=== PATIENT | female | born 1985 | race Caucasian/White ===

== ENCOUNTER 2024-11-01 13:40 | Emergency (ER) | payer OTHER, SELFPAY ==
--- OUTSIDE RECORDS SUMMARY | 2024-11-01 13:42 | XMS_ITS | Patient Health Record ---
Author Organization [facility] Address [address] [place], [place] [id number] Care Team Providers Care Pecan Gatherer Name Role Phone SHAWANDABANNER Primary Care Provider Eze Schwartz Unavailable [phone] Allergies No Known Allergies Reason For Referral No Information Medications Medication SIG (Take, Route, Frequency, Duration) Notes Start Date End Date Status Microgestin FE 1.5/30 1.5-30 MG-MCG 1 tablet Orally Once a day; Duration: 90 days 03/15/2020 Active metroNIDAZOLE 0.75 % 1 applicatorful at bedtime Vaginal Once a day; Duration: 5 day(s) 08/09/2021 Active PROzac Active Metrogel-Vaginal 0.75% qd 5d 0.75% 5 g per vagina daily; Duration: 5 days 03/15/2020 Active Problems Problem Type SNOMED Code ICD Code Onset Dates Problem Status W/U Status Risk Notes Problem Menstrual disorder (115569407) Irregular menses (N92.6) Active confirmed Problem Obesity due to excess calories (759822181) Other obesity due to excess calories (E66.09) Active confirmed Problem Hypothyroid (57898850) Hypothyroid (E03.9) Active confirmed Problem Fibroid uterus (D25.9) Active confirmed Plan Of Treatment No Information Insurance Providers Payer Name Payer Address Payer Phone Subscriber Number Group Number Insured Name Patient Relationship to Insured Coverage Start Date Coverage End Date [facility] CHO[facility] PLUS [address] [place] [phone] [id number] Laureen Laguna Self - patient is the insured 2 Medications Administered Medication Instructions Date of Administration Dosage Notes MIKE-b12 04/03/2020 1 mg Medical (General) History Surgical History Surgery Date(Month/Year)
--- OUTSIDE RECORDS SUMMARY | 2024-11-01 13:42 | XMS_ITS | Clinical Summary ---
Author Organization [facility] Address [address] [place] [address] Care Team Providers Care Calliope Player Name Role Phone Breanne Dai MD Unavailable [phone] Deisy Zabala MD Primary Care Provider [phone] Allergies No known active allergies Medications valACYclovir (VALTREX) 1 gram tabletIndications :Chronic Suppression Take 1 tablet (1,000 mg total) by mouth daily. 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 before breakfast 90 tablet 9 Active levonorgestrel-et hinyl estrad (ALTAVERA, 28,) 0.15-0.03 mg per tabletIndications :Surveillance of previously prescribed contraceptive pill Take 1 tablet by mouth daily 84 tablet 4 9 Active FLUoxetine (PROzac) 20 mg capsuleIndication s:Anxiety with depression Take 1 capsule (20 mg total) by mouth daily 90 capsule 4 9 Active Active Problems Problem Noted Date Diagnosed Date HSV-2 (herpes simplex virus 2) infection 017 Acquired hypothyroidism 11/02/2015 Persistent mood disorder 11/02/2015 Resolved Problems Problem Noted Date Diagnosed Date Resolved Date Obesity due to excess calories 12/01/2016 12/08/2016 Surgical History Surgery Date Site/Laterality Comments CERVICAL BIOPSY W/ LOOP ELECTRODE EXCISION 05/04/2011 - 05/03/2012 BELEN II-III of cervix Medical History Medical History Date Comments Hypothyroidism Abnormal Pap smear of cervix 2011 BELEN II-III of cervix IBS (irritable bowel syndrome) anxiety 2015 Seasonal allergies Genital herpes simplex type 2 2017 Basal cell carcinoma 2015 nose Family History Medical History Relation Name Comments Other Father biological fath er unknown Colon cancer Maternal Grandfather Dementia Maternal Grandfather Bladder Cancer Maternal Grandmother Dementia Maternal Grandmother Heart failure Maternal Grandmother Hypertension Maternal Grandmother Kidney failure Maternal Grandmother COD a t age 80 Stroke Maternal Grandmother Cancer Mother's Brother COD at age 59; rare blood cancer Breast cancer Neg Hx Ovarian cancer Neg Hx Thyroid cancer Neg Hx Relation Name Status Comments Father Maternal Grandfather Maternal Grandmother Mother's Brother Social History Tobacco Use Types Packs/Day Years Used Date Smoking Tobacco: Never Smokeless Tobacco: Never Tobacco Cessation:Counseling Given: Yes Alcohol Use Standard Drinks/Week Comments No 0 (1 standard drink = 0.6 oz pur e alcohol) Comments No Sex and Gender Information Value Date Recorded Sex Assigned at Not on file Legal Sex Female 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 Gender Identity Not on file Sexual Orientation Not on file 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 Not on file Not on dixie e Obstetrics History Para Term AB IAB SAB Ectopic Multiple Livin g Live Births 2 1 1 0 1 1 0 0 0 1 1 Date Outcome GA Total Labor Labor/2nd/3rd Weight Sex Type Anes PTL Catherine A1 A5 Name Clin Term IAB Last Filed Vital Signs Vital Sign Reading Time Taken Comments Blood Pressure 110/78 01/24/2019 8:36 AM CDT Pulse 90 12/08/2016 8:38 AM CDT Temperature - - Respiratory Rate 16 12/08/2016 8:38 AM CDT Oxygen Saturation 98% 05/26/2016 2:05 PM LEVEL VIAL SEALER Inhaled Oxygen Concentration - - Weight 97.1 kg (214 lb) 01/24/2019 8:36 AM CDT Height 170.2 cm (5' 7) 06/13/2024 1:56 PM LEVEL VIAL SEALER Body Mass Index 34.54 01/24/2019 8:36 AM CDT Plan of Treatment Health Maintenance Due Date Last Done Comments Cervical Cancer Screening 1984 Depression Screening 1984 Varicella Vaccines (1 of 2 - 13+ 2-dose series) 01/13/1997 Hepatitis B Screening 01/13/2002 Regular Well Visit/Exam 18-64 01/25/2020, 2018, 12/08/2016 DTaP/Tdap/Td Vaccine (2 - Td or Tdap) 05/04/2023 05/04/2013 Influenza Vaccine (Season Ended) 2025 02/08/2019 Breast Cancer Screening-Mammogram 06/13/2025 06/13/2024 Hepatitis C Screening Completed 08/12/2013 HPV Vaccines Aged Out No longer eligi ble based on patient's age to complete this topic Pneumococcal vaccine <65 Aged Out No longer eligible based on patient's age to complete this topic Procedures Procedure Name Priority Date/Time Associated Diagnosis Comments SCREENING MAMMOGRAM BILATERAL W JOEL Schedule Routine, Read Routine (OP Routine) 06/13/2024 2:06 PM LEVEL VIAL SEALER Screening mammogram, encounter for SERUM HEPATITIS C AB Routine 08/12/2013 10:54 AM CDT from Last 3 Months or Most Recently Relevant to Health Maintenance Results * Screening Mammogram Bilateral W Joel (06/13/2024 2:06 PM LEVEL VIAL SEALER) Anatomical Region Laterality Modality Breast Bilateral Mammography 06/13/2024 2:07 PM LEVEL VIAL SEALER Impressions 06/13/2024 2:07 PM LEVEL VIAL SEALER There is no mammographic evidence of malignancy. A 1 year screening mammogram is recommended. BI-RADS: 1 - Negative. The patient has been or will be contacted. The patient will be entered into a reminder system with a target due date of 1 year for her next mammogram. Electronically signed by: Shahab Deluna M.D. Narrative 06/13/2024 2:07 PM LEVEL VIAL SEALER EXAMINATION: SCREENING MAMMOGRAM BILATERAL W JOEL ORDERING HEALTHCARE PROVIDER: SELF SCREENING MAMMOGRAM HISTORY: Routine screening mammography. COMPARISON: None TECHNIQUE: CC and MLO views of the bilateral breasts were obtained with digital technique using breast tomosynthesis with C view. Computer aided detection was utilized. FINDINGS: DENSITY: There are scattered areas of fibroglandular density. BREASTS: There are no suspicious masses, suspicious calcifications, or other suspicious findings in either breast. us Self Screening Mammogram IMG MAMMO PROCEDURES Fi nal Result * Serum Hepatitis C ab (08/12/2013 10:54 AM CDT) HCV ab Negative Negative HISTORICAL RESULTS Serum 08/12/2013 10:5 4 AM CDT Narrative HISTORICAL RESULTS - 08/12/2013 3:40 PM CDT #[id number] [facility] DOA, Varicella IgG, Obstetric Panel, and CF us Breanne Dai MD LAB BLOOD ORDERABLE S Final Result HISTORICAL RESULTS from Last 3 Months or Most Recently Relevant to Health Maintenance Insurance [facility] [employer] Member Subscriber Plan / Payer (Ef fective 2018-Present) Name:Laureen Laguna Relation to Subscriber:Self Name:Laureen Laguna Payer ID:[id number] (NAIC) Type:[facility] HMO/PPO Address: [place] [id number] [facility] Care Teams Calliope Player Relationship Specialty Start Date End Date Deisy Zabala MD [address] [place] [address] PCP - General 08/25/17 Breanne Dai MD [address] [place] [address] Obstetrics and Gynecology 11/28/16
--- OUTSIDE RECORDS SUMMARY | 2024-11-01 13:42 | XMS_ITS | Data Portability ---
Author Organization [facility] [address], Main Office Address [address] [place] [address] Assessment No assessment recorded. Plan of Treatment Reminders Order Date Submit Date Provider Last Modified By Organization Details Last Modified Time Details Appointments None recorded. Lab lipid panel, serum [address] (Lab), [address] [place], [address], 3 08:42:26 CMP, serum or plasma [address] (Lab), [address] [place], [address], 3 08:42:26 glycohemogl obin, total, blood [address] (Lab), [address] [place], [address], 3 08:42:26 TSH, serum or plasma [address] (Lab), [address] [place], [address], 3 08:42:26 CBC w/ auto diff [address] (Lab), [address] [place], [address], 3 08:42:26 CBC w/ diff [address] (Lab), [address] [place], [address], 3 08:16:20 iron + TIBC + ferritin, serum [address] (Lab), [address] [place], [address], 3 08:16:20 lipid panel, serum 2022 023 [facility] (Lab), [address] [place], [address], 3 09:07:52 TSH, serum or plasma 2022 023 [facility] (Lab), [address] [place], [address], 3 09:07:55 Referral None recorded. Procedures None recorded. Surgeries None recorded. Imaging None recorded. Medication Orders Zepbound 10 mg/0.5 mL subcutaneou s pen injector 2022 023 [facility] Not available 16:42:04 Patient TargetsNo targets recorded. Patient Instructions Encounter Date Encounter Id Patient Instructions Last Modified By Organization Details Last Modified Time 08/19/2022 [id number] FU in 4 mo for thyroid, etc. Not available 08/19/2022 11:21:43 04/22/2023 [id number] 04/22/23 Pt awar jim of radha departure. Fu new provider in 6-12 mo. Not available 04/22/2023 17:00:40 Reason for Referral None Reported. Results Created Date Observation Date Name Description Value Unit Range Abnormal Flag Note LastModifiedBy Organization Detail LastModifiedTime 02/06/2002/06/2022 HEMOG LOBIN A1C hemoglobin A1C 5.4 %_of_ total _HGB <5.7 normal For the purpo se of scree sandra for the prese nce of diabe mandie: <5.7% Consi stent with the absen ce of diabe mandie 5.7-6 .4% Consi stent with incre ased risk for diabe mandie (pred iabet es) > or =6.5% Consi stent with diabe mandie This assay resul t is consi stent with a decre ased risk of diabe mandie. Curre ntly, no conse nsus exist s edwin lawrence use of hemog lobin A1c for diagn osis of diabe mandie in child dolly. Accor ding to Ameri can Diabe mandie Assoc iatio n (ADA) guide lines , hemog lobin A1c <7.0% repre sents optim al contr ol in non-p regna nt diabe tic patie nts. Diffe rent metri cs may apply to speci fic patie nt popul ation s. [facility]ds of Medic al Care in Diabe mandie(A DA). Not Available [facility] [address] , [place], [address], 02/06/2022 06:41:51 02/06/20 22 02/06/2022 VITAM IN D,25- OH,TO BONNIE,I A vitamin D,25-oh,tota l,ia 45 NG/mL 30-100 normal Vitam in D Statu s 25-OH Vitam in D: Defic iency : <20 ng/mL Insuf ficie ncy: 20 - 29 ng/mL Optim al: > or = 30 ng/mL For 25-OH Vitam in D testi ng on patie nts on D2-troncoso pplem entat ion and patie nts for whom quant itati on of D2 and D3 fract ions is requi red, the [facility] Ass[facility] eD(TM ) 25-OH VIT D, (D2,D 3), LC/MS /MS is recom aaron d: order code 73673 (mouna ents >2yrs ). See Note 1 Note 1 For addit ional infor anny yost e refer to http: //sammy Mcclelland stDia gnost ics.c om/fa q/FAQ 199 (This link is being provi ded for infor matio nal/ educa shay l purpo ses only. ) Not Available [address], [address], 02/06/2022 06:41:51 02/06/20 22 02/06/2022 TSH W/REF MIKAELA TO FT4 TSH w/reflex to FT4 1.05 mIU/L normal Refer ence Range > or = 20 Years 0.40- 4.50 Pregn lupis Range s First trime ster 0.26- 2.66 Secon d trime ster 0.55- 2.73 Third trime ster 0.43- 2.91 Not Available [address], [address], 02/06/2022 06:41:50 02/06/2002/06/2022 VITAM IN B12 vitamin B12 413 pg/mL 200-11 00 normal Not Available [address], [address], 02/06/2022 06:41:49 02/06/20 22 02/06/2022 CBC (INCL UDES DIFF/ PLT) white blood cell count 9.5 thous and/u L 3.8-10 .8 normal Not Available [address], [address], 02/06/2022 06:41:49 02/06/20 22 02/06/2022 CBC (INCL UDES DIFF/ PLT) red blood cell count 5.19 oumar on/uL 3.80-5 .10 high Not Available [address], [address], 02/06/2022 06:41:49 02/06/20 22 02/06/2022 CBC (INCL UDES DIFF/ PLT) hemoglobin 14.5 g/dL 11.7-1 5.5 normal Not Available [address], [address], 02/06/2022 06:41:49 02/06/20 02/06/2022 CBC (INCL UDES DIFF/ PLT) hematocrit 46.3 % 35.0-4 5.0 high Not Available [address], [address], 02/06/2022 06:41:49 02/06/20 22 02/06/2022 CBC (INCL UDES DIFF/ PLT) MCV 89.2 fL 80.0-1 00.0 normal Not Available [address], [address], 02/06/2022 06:41:49 02/06/2002/06/2022 CBC (INCL UDES DIFF/ PLT) MCH 27.9 pg 27.0-3 3.0 normal Not Available [address], [address], 02/06/2022 06:41:49 02/06/2002/06/2022 CBC (INCL UDES DIFF/ PLT) MCHC 31.3 g/dL 32.0-3 6.0 low Not Available [address], [address], 02/06/2022 06:41:49 02/06/20 22 02/06/2022 CBC (INCL UDES DIFF/ PLT) RDW 12.0 % 11.0-1 5.0 normal Not Available [address], [address], 02/06/2022 06:41:49 02/06/20 22 02/06/2022 CBC (INCL UDES DIFF/ PLT) platelet count 361 thous and/u L 140-40 0 normal Not Available [address], [address], 02/06/2022 06:41:49 02/06/20 22 02/06/2022 CBC (INCL UDES DIFF/ PLT) MPV 11.2 fL 7.5-12 .5 normal Not Available [address] [place], [address], 02/06/2022 06:41:49 02/06/2002/06/2022 CBC (INCL UDES DIFF/ PLT) absolute neutrophils 5757 cells /uL 1500-7 800 normal Not Available [address], [address], 02/06/2022 06:41:49 02/06/20 22 02/06/2022 CBC (INCL UDES DIFF/ PLT) absolute lymphocytes 2803 cells /uL 850-39 00 normal Not Available [address], [address], 02/06/2022 06:41:49 02/06/2002/06/2022 CBC (INCL UDES DIFF/ PLT) absolute monocytes 646 cells /uL 200-95 0 normal Not Available [address], [address], 02/06/2022 06:41:49 02/06/2002/06/2022 CBC (INCL UDES DIFF/ PLT) absolute eosinophils 190 cells /uL 15-500 normal Not Available [address], [address], 02/06/2022 06:41:49 02/06/20 22 02/06/2022 CBC (INCL UDES DIFF/ PLT) absolute basophils 105 cells /uL 0-200 normal Not Available [address], [address], 02/06/2022 06:41:49 02/06/2002/06/2022 CBC (INCL UDES DIFF/ PLT) neutrophils 60.6 % normal Not Available [address], [address], 02/06/2022 06:41:49 02/06/20 22 02/06/2022 CBC (INCL UDES DIFF/ PLT) lymphocytes 29.5 % normal Not Available [address], [address], 02/06/2022 06:41:49 02/06/20 22 02/06/2022 CBC (INCL UDES DIFF/ PLT) monocytes 6.8 % normal Not Available [address], [address], 02/06/2022 06:41:49 02/06/20 22 02/06/2022 CBC (INCL UDES DIFF/ PLT) eosinophils 2.0 % normal Not Available [facility] [address], [address], 02/06/2022 06:41:49 02/06/20 22 02/06/2022 CBC (INCL UDES DIFF/ PLT) basophils 1.1 % normal Not Available [address], [address], 02/06/2022 06:41:49 02/06/20 22 02/06/2022 COMPR EHENS BILLY METAB OLIC PANEL glucose 81 mg/dL 65-99 normal Fasti ng refer ence inter mary Not Available [address], [address], 02/06/2022 06:41:49 02/06/20 22 02/06/2022 COMPR EHENS BILLY METAB OLIC PANEL urea nitrogen (BUN) 11 mg/dL 7-25 normal Not Available [address], [address], 02/06/2022 06:41:49 02/06/20 22 02/06/2022 COMPR EHENS BILLY METAB OLIC PANEL creatinine 0.73 mg/dL 0.50-0 .97 normal Not Available [address], [address], 02/06/2022 06:41:49 10/05/02/06/2022 COMPR EHENS BILLY METAB OLIC PANEL eGFR 108 mL/mi n/1.7 3m2 > or = 60 normal The eGFR is based on the CKD-E PI 2020 equat ion. To calcu late the new eGFR from a previ ous Creat inine or Cysta tin C resul t, go to https ://patrick mariee.lelo griffin.o bushra/pr ofess ional s/ kdoqi /gfr% 5Fcal culat or Not Available [address] [place], [address], 02/06/2022 06:41:49 02/06/2002/06/2022 COMPR EHENS BILLY METAB OLIC PANEL BUN/creatini ne ratio not applic able (calc ) 6-22 Not Available [address], [address], 02/06/2022 06:41:49 02/06/20 22 02/06/2022 COMPR EHENS BILLY METAB OLIC PANEL sodium 138 mmol/ L 135-14 6 normal Not Available [address], [address], 02/06/2022 06:41:49 02/06/20 22 02/06/2022 COMPR EHENS BILLY METAB OLIC PANEL potassium 4.4 mmol/ L 3.5-5. 3 normal Not Available [facility] [place] [address] [place], [address], 02/06/2022 06:41:49 02/06/2002/06/2022 COMPR EHENS BILLY METAB OLIC PANEL chloride 104 mmol/ L 98-110 normal Not Available [facility] [address], [address], 02/06/2022 06:41:49 02/06/20 22 02/06/2022 COMPR EHENS BILLY METAB OLIC PANEL carbon dioxide 27 mmol/ L 20-32 normal Not Available [facility] [address], [address], 02/06/2022 06:41:49 02/06/20 22 02/06/2022 COMPR EHENS BILLY METAB OLIC PANEL calcium 9.1 mg/dL 8.6-10 .2 normal Not Available [address], [address], 02/06/2022 06:41:49 02/06/20 22 02/06/2022 COMPR EHENS BILLY METAB OLIC PANEL protein, total 6.7 g/dL 6.1-8. 1 normal Not Available [address], [address], 02/06/2022 06:41:49 02/06/20 22 02/06/2022 COMPR EHENS BILLY METAB OLIC PANEL albumin 4.1 g/dL 3.6-5. 1 normal Not Available [address], [address], 02/06/2022 06:41:49 02/06/20 22 02/06/2022 COMPR EHENS BILLY METAB OLIC PANEL globulin 2.6 g/dL_ (calc ) 1.9-3. 7 normal Not Available [address], [address], 02/06/2022 06:41:49 02/06/20 22 02/06/2022 COMPR EHENS BILLY METAB OLIC PANEL albumin/glob ulin ratio 1.6 (calc ) 1.0-2. 5 normal Not Available [address], [address], 02/06/2022 06:41:49 02/06/20 22 02/06/2022 COMPR EHENS BILLY METAB OLIC PANEL bilirubin, total 0.5 mg/dL 0.2-1. 2 normal Not Available [address], [address], 02/06/2022 06:41:49 02/06/2002/06/2022 COMPR EHENS BILLY METAB OLIC PANEL alkaline phosphatase 91 U/L 31-125 normal Not Available [facility] [employer] [address], [address], 02/06/2022 06:41:49 02/06/20 22 02/06/2022 COMPR EHENS BILLY METAB OLIC PANEL AST 11 U/L 10-30 normal Not Available [address], [address], 02/06/2022 06:41:49 02/06/2002/06/2022 COMPR EHENS BILLY METAB OLIC PANEL ALT 10 U/L 6-29 normal Not Available [address], [address], 02/06/2022 06:41:49 02/06/2002/06/2022 LIPID PANEL , STAND CHRIS cholesterol, total 208 mg/dL <200 high Not Available [address], [address], 02/06/2022 06:41:48 02/06/20 22 02/06/2022 LIPID PANEL , STAND CHRIS HDL cholesterol 43 mg/dL > or = 50 low Not Available [address], [address], 02/06/2022 06:41:48 02/06/2002/06/2022 LIPID PANEL , STAND CHRIS triglyceride s 161 mg/dL <150 high Not Available [address], [address], 02/06/2022 06:41:48 02/06/2002/06/2022 LIPID PANEL , STAND CHRIS LDL-choleste rol 135 mg/dL _(martin c) high Refer ence range : <100 Elisabet able range <100 mg/dL for prima ry preve ntion ; <70 mg/dL for patie nts with CHD or diabe tic patie nts with > or = 2 CHD risk facto rs. LDL-C is now calcu lated using the [facility] kins jaguar ferrer n, which is a valid ated novel joe wallace than the Fried alexandria landinat ion in the estim ation of LDL-C . Mable brower SS et al. FAITH. 2013; 310(1 9): 2061- 2068 (http ://ed ucati on.Qu estDi Tw[employer]tain[employer]. com/f aq/FA Q164) Not Available [facility] [place] [address] [place], [address], 02/06/2022 06:41:48 02/06/2002/06/2022 LIPID PANEL , STAND CHRIS chol/HDLC ratio 4.8 (calc ) <5.0 normal Not Available [place] [address] [place], [address], 02/06/2022 06:41:48 02/06/20 22 02/06/2022 LIPID PANEL , STAND CHRIS non HDL cholesterol 165 mg/dL _(martin c) <130 high For patie nts with diabe mandie plus 1 major ASCVD risk facto r, treat ing to a non-H DL-C goal of <100 mg/dL (LDL- C of <70 mg/dL ) is consi christined a jose carlos lugo optio n. Not Available [place] [address] [place], [address], 02/06/2022 06:41:48 03/19/20 22 03/22/2022 BACTE RIAL VAGIN OSIS, PAUL atopobium vaginae low - 0 score Not Available [facility] (Lab) [address] [place], [address], 03/22/2022 10:12:11 03/19/20 22 03/22/2022 BACTE RIAL VAGIN OSIS, PAUL bvab 2 low - 0 score Not Available [facility] (Lab) [address] [place], [address], 03/22/2022 10:12:11 03/19/20 22 03/22/2022 BACTE RIAL VAGIN OSIS, PAUL megasphaera 1 low - 0 score . Calcu late total score by milagros quarles the 3 indiv idual bacte rial vagin osis (BV) marke r score s toget her. Total score is inter prete d as follo ws: Total score 0-1: Indic ates the absen ce of BV. Total score 2: Indet ermin ate for BV. Addit ional clini martin data shoul d be evalu ated to estab yulisa a diagn osis. Total score 3-6: Indic ates the prese nce of BV. . This test was devel oped and its perfo rmanc e lobito cteri stics deter mined by [facility]. It has not been clear ed or appro vero by the Food and Drug Admin istra tion. Perfo rmed at: =G - [facility] [place] [address] [facility] , [place] [address] Lab Direc tor: Lina fernandez MD, Phone : [phone] Not Available [facility] (Lab) [address] [place], [address], 03/22/2022 10:12:11 08/27/19 23 08/27/2022 LIPID PANEL , STAND CHRIS cholesterol, total 213 mg/dL <200 high Not Available [facility] [address] [place], [address], 08/27/2022 09:07:52 08/27/19 23 08/27/2022 LIPID PANEL , STAND CHRIS HDL cholesterol 37 mg/dL > or = 50 low Not Available [facility] [address] [place], [address], 08/27/2022 09:07:52 08/27/19 23 08/27/2022 LIPID PANEL , STAND CHRIS triglyceride s 142 mg/dL <150 normal Not Available [facility] [address] [place], [address], 08/27/2022 09:07:52 08/27/1908/27/2022 LIPID PANEL , STAND CHRIS LDL-choleste rol 149 mg/dL _(martin c) high Refer ence range : <100 Elisabet able range <100 mg/dL for prima ry preve ntion ; <70 mg/dL for patie nts with CHD or diabe tic patie nts with > or = 2 CHD risk facto rs. LDL-C is now calcu lated using the Mable n-Hop kins calcu latio n, which is a valid ated novel metho d provi ding kunal r accur acy than the Fried [place] equat ion in the estim ation of LDL-C . Mable brower SS et al. FAITH. 2013; 310(1 9): 2061- 2068 (http ://ed ucati on.Qu ridgePowervation. com/f aq/FA Q164) Not Available [facility] [address] [place], [address], 08/27/2022 09:07:52 08/27/1908/27/2022 LIPID PANEL , STAND CHRIS chol/HDLC ratio 5.8 (calc ) <5.0 high Not Available [facility] [address] [place], [address], 08/27/2022 09:07:52 08/27/1908/27/2022 LIPID PANEL , STAND CHRIS non HDL cholesterol 176 mg/dL _(martin c) <130 high For patie nts with diabe mandie plus 1 major ASCVD risk facto r, treat ing to a non-H DL-C goal of <100 mg/dL (LDL- C of <70 mg/dL ) is consi christined a thera peuti c optio n. Not Available [facility] [address] [place], [address], 08/27/2022 09:07:52 08/27/1908/27/2022 IRON AND TOTAL IRON DENNIS NG CAPAC ITY iron, total 129 mcg/d L 40-190 normal Not Available [address], [address], 08/27/2022 09:07:53 08/27/19 23 08/27/2022 IRON AND TOTAL IRON DENNIS NG CAPAC ITY iron binding capacity 334 mcg/d L_(ca lc) 250-45 0 normal Not Available [address], [address], 08/27/2022 09:07:53 08/27/19 23 08/27/2022 IRON AND TOTAL IRON DENNIS NG CAPAC ITY % saturation 39 %_(ca lc) 16-45 normal Not Available [address], [address], 08/27/2022 09:07:53 08/27/19 23 08/27/2022 CBC (INCL UDES DIFF/ PLT) white blood cell count 9.6 thous and/u L 3.8-10 .8 normal Not Available [address], [address], 08/27/2022 09:07:54 08/27/1908/27/2022 CBC (INCL UDES DIFF/ PLT) red blood cell count 5.00 oumar on/uL 3.80-5 .10 normal Not Available [address], [address], 08/27/2022 09:07:54 08/27/19 23 08/27/2022 CBC (INCL UDES DIFF/ PLT) hemoglobin 14.3 g/dL 11.7-1 5.5 normal Not Available [address], [address], 08/27/2022 09:07:54 08/27/19 23 08/27/2022 CBC (INCL UDES DIFF/ PLT) hematocrit 44.4 % 35.0-4 5.0 normal Not Available [address], [address], 08/27/2022 09:07:54 08/27/1908/27/2022 CBC (INCL UDES DIFF/ PLT) MCV 88.8 fL 80.0-1 00.0 normal Not Available [address], [address], 08/27/2022 09:07:54 08/27/19 23 08/27/2022 CBC (INCL UDES DIFF/ PLT) MCH 28.6 pg 27.0-3 3.0 normal Not Available [address], [address], 08/27/2022 09:07:54 08/27/19 23 08/27/2022 CBC (INCL UDES DIFF/ PLT) MCHC 32.2 g/dL 32.0-3 6.0 normal Not Available [address], [address], 08/27/2022 09:07:54 08/27/19 23 08/27/2022 CBC (INCL UDES DIFF/ PLT) RDW 12.1 % 11.0-1 5.0 normal Not Available [address], [address], 08/27/2022 09:07:54 08/27/1908/27/2022 CBC (INCL UDES DIFF/ PLT) platelet count 347 thous and/u L 140-40 0 normal Not Available [address], [address], 08/27/2022 09:07:54 08/27/19 23 08/27/2022 CBC (INCL UDES DIFF/ PLT) MPV 12.1 fL 7.5-12 .5 normal Not Available [address], [address], 08/27/2022 09:07:54 08/27/19 23 08/27/2022 CBC (INCL UDES DIFF/ PLT) absolute neutrophils 6326 cells /uL 1500-7 800 normal Not Available [address], [address], 08/27/2022 09:07:54 08/27/19 23 08/27/2022 CBC (INCL UDES DIFF/ PLT) absolute lymphocytes 2563 cells /uL 850-39 00 normal Not Available [address], [address], 08/27/2022 09:07:54 08/27/19 23 08/27/2022 CBC (INCL UDES DIFF/ PLT) absolute monocytes 557 cells /uL 200-95 0 normal Not Available [address], [address], 08/27/2022 09:07:54 08/27/19 23 08/27/2022 CBC (INCL UDES DIFF/ PLT) absolute eosinophils 67 cells /uL 15-500 normal Not Available [address], [address], 08/27/2022 09:07:54 08/27/19 23 08/27/2022 CBC (INCL UDES DIFF/ PLT) absolute basophils 86 cells /uL 0-200 normal Not Available [address], [address], 08/27/2022 09:07:54 08/27/19 23 08/27/2022 CBC (INCL UDES DIFF/ PLT) neutrophils 65.9 % normal Not Available [address], [address], 08/27/2022 09:07:54 08/27/19 23 08/27/2022 CBC (INCL UDES DIFF/ PLT) lymphocytes 26.7 % normal Not Available [address], [address], 08/27/2022 09:07:54 08/27/19 23 08/27/2022 CBC (INCL UDES DIFF/ PLT) monocytes 5.8 % normal Not Available [address], [address], 08/27/2022 09:07:54 08/27/19 23 08/27/2022 CBC (INCL UDES DIFF/ PLT) eosinophils 0.7 % normal Not Available [address], [address], 08/27/2022 09:07:54 08/27/1908/27/2022 CBC (INCL UDES DIFF/ PLT) basophils 0.9 % normal Not Available [address], [address], 08/27/2022 09:07:54 08/27/1908/27/2022 LEONARD TIN ferritin 26 NG/mL 16-154 normal Not Available [address], [address], 08/27/2022 09:07:54 08/27/1908/27/2022 TSH W/REF MIKAELA TO FT4 TSH w/reflex to FT4 0.83 mIU/L normal Refer ence Range > or = 20 Years 0.40- 4.50 Pregn lupis Range s First trime ster 0.26- 2.66 Secon d trime ster 0.55- 2.73 Third trime ster 0.43- 2.91 Not Available [address], [address], 08/27/2022 09:07:55 06/13/1906/13/2024 imagi ng/di agnos tic resul t No observ ation record ed. [address], [place], [address], 06/13/2024 15:12:14 Result Notes None recorded. Problems Name Problem SNOMED Code Status Onset Date Resolution Date Notes Provider Name and Address Organization Details Recorded Time Mixed anxiety and depressive disorder 754762164 Active 2018 Not Available [facility] 3 18:32:16 Vitamin D deficiency 11047621 Active 2021 Not Available [facility] 3 18:32:16 Hypothyroidis m 60200970 Active 2018 Not Available [facility] 3 18:32:17 Obese 525045311 Active 2021 Not Available [facility] 3 18:32:17 Vitamin B deficiency 69950803 Active 2021 Not Available [facility] 3 18:32:17 Hyperlipidemi a 55079566 Active 2021 Not Available [facility] 3 18:32:17 Anemia 343823250 Active 2022 Sandhya Meraz NP [address], [address], [place], [address] , [employer] [facility] 3 11:06:24 Break-through bleeding 44108895 Active 2022 Sandhya Meraz NP [address], [address], [place], [address] , [employer] [facility] 3 11:19:32 Abnormal vaginal bleeding 054793062 Active 2022 Sandhya Meraz NP [address], [address], [place], [address] , [employer] [facility] 3 20:52:00 Herpes zoster 4164966 Active 2022 Sandhya Meraz NP [address], [address], [place], [address] , [employer] [facility] 3 17:35:02 Acute sinusitis 10913498 Active 2022 Sandhya Meraz NP [address], [address], [place], [address] , [employer] [facility] 3 18:06:32 Insomnia disorder related to another mental disorder 36786959 Active 2022 Sandhya Meraz NP [address] [facility], [address], [place], [address] , [employer] [facility] [employer] [facility] 3 14:12:18 Hypercholeste rolemia 51971697 Active 2022 Sandhya Meraz NP [address] [facility], [place], [address] , [facility] [employer] [facility] [employer] [facility] 3 16:36:43 Overweight 824468449 Active 2022 Sandhya Meraz NP [address], [place], [address] , [facility] [employer] [facility] [employer] [facility] 3 16:37:19 Anxiety 43308906 Active 2022 Sandhya Meraz NP [address], [place] [address], [place], [address] , [employer] [facility] 3 16:53:37 Problem Notes None recorded. Procedures Surgical History Date Name Laterality Status Provider Name and Address Organization Details Recorded Time screening for malignant neoplasm of skin completed Not Available [facility] 07/02/2022 18:32:03 Imaging Results None recorded. Procedure Notes None recorded. Medical Equipment None Reported. Allergies No known drug allergies Medications Name Sig Start Date Stop Date Status Note LastModified by Organization Details LastModified Time amoxicillin 500 mg capsule TAKE 1 CAPSULE BY MOUTH TWICE DAILY 03/19 completed Not Available Not Available Not Available doxycycline hyclate 100 mg capsule Take 1 capsule twice a day by oral route for 10 days. 04/22 completed Not Available Not Available Not Available Lidocaine Viscous 2 % mucosal solution SWISH AND SPIT OUT 5 ML BY MOUTH EVERY 6 HOURS (UP TO 4 TIMES A DAY) FOR THROAT PAIN 03/19 completed Not Available Not Available Not Available ofloxacin 0.3 % eye drops 03/19 completed Not Available Not Available Not Available fluconazole 150 mg tablet TAKE ONE TABLET BY MOUTH A ONE-TIME DOSE AFTER COMPLETIO N OF ANTIBIOTI CS, IF SYMPTOMS PERSIST MAY TAKE ADDITIONA L TABLET AFTER 72 HOURS 03/19 completed Not Available Not Available Not Available metronidazo le 0.75 % (37.5 mg/5 gram) vaginal gel INSERT 5 GRAMS VAGINALLY ONCE DAILY FOR 5 DAYS 03/19 completed Not Available Not Available Not Available prednisone 20 mg tablet 02/08 completed Not Available Not Available Not Available clonazepam 0.5 mg tablet TAKE ONE TABLET BY MOUTH EVERY DAY NEEDED 04/22 completed Not Available Not Available Not Available fluoxetine 10 mg tablet TAKE 1 TABLET BY MOUTH ONCE DAILY 08/29 completed Not Available Not Available Not Available levonorgest rel 0.15 mg-ethinyl estradiol 0.03 mg tablet TAKE 1 TABLET BY MOUTH ONCE DAILY 08/29 completed Not Available Not Available Not Available metronidazo le 500 mg tablet 02/08 completed Not Available Not Available Not Available acyclovir 800 mg tablet TAKE ONE TABLET FIVE TIMES A DAY BY MOUTH FOR 10 DAYS 04/22 completed Not Available Not Available Not Available levothyroxi ne 75 mcg tablet TAKE ONE TABLET BY MOUTH EVERY MORNING BEFORE BREAKFAST active Not Available Not Available No t Available neomycin-po lymyxin-dex ameth 3.5 mg/mL-10,00 0 unit/mL-0.1 % eye drops 04/22 completed Not Available Not Available Not Available polymyxin B sulfate 10,000 unit-trimet hoprim 1 mg/mL eye drops 04/22 completed Not Available Not Available Not Available montelukast 10 mg tablet 03/19 completed Not Available Not Available Not Available fluoxetine 20 mg capsule Take 1 capsule by mouth once daily active Not Available Not Available No t Available fluticasone propionate 50 mcg/actuati on nasal spray,suspe nsion 02/08 completed Not Available Not Available Not Available amoxicillin 875 mg-potassiu m clavulanate 125 mg tablet TAKE 1 TABLET BY MOUTH EVERY 12 HOURS 08/29 completed Not Available Not Available Not Available amoxicillin 500 mg-potassiu m clavulanate 125 mg tablet TAKE 1 TABLET BY MOUTH EVERY 12 HOURS 09/26 completed Not Available Not Available Not Available escitalopra m 5 mg tablet Take 1 tablet by mouth once daily active Not Available Not Available No t Available nitrofurant oin monohydrate /macrocryst als 100 mg capsule 02/08 completed Not Available Not Available Not Available Todd Fe 1.5/30 (28) 1.5 mg-30 mcg (21)/75 mg (7) tablet TAKE ONE TABLET BY MOUTH EVERY DAY active Not Available Not Available No t Available Saxenda 3 mg/0.5 mL (18 mg/3 mL) subcutaneou s pen injector 1.8 mg inj sq daily for 1 week, then 2.4 mg inj sq daily for 1 week, then 3 mg inj sq daily active Not Available Not Available No t Available Mounjaro 7.5 mg/0.5 mL subcutaneou s pen injector INJECT 7.5 MG SUBCUTANE OUS ROUTE ONCE EVERY WEEK 04/22 completed Not Available Not Available Not Available Mounjaro 5 mg/0.5 mL subcutaneou s pen injector INJECT 5 MG EVERY WEEK BY SUBCUTANE OUS ROUTE 04/09 completed Not Available Not Available Not Available Mounjaro 10 mg/0.5 mL subcutaneou s pen injector INJECT 10MG UNDER THE SKIN WEEKLY 04/22 completed Not Available Not Available Not Available Mounjaro 12.5 mg/0.5 mL subcutaneou s pen injector INJECT 12.5MG UNDER THE SKIN EVERY WEEK 12/02 completed Not Available Not Available Not Available Mounjaro 2.5 mg/0.5 mL subcutaneou s pen injector INJECT 2.5MG (TWO & ONE-HALF) UNDER THE SKIN ON ABDOMEN ONCE A WEEK 03/19 completed Not Available Not Available Not Available Zepbound 10 mg/0.5 mL subcutaneou s pen injector Inject 10 mg every week by subcutane ous route. active Not Available Not Available No t Available Zepbound 7.5 mg/0.5 mL subcutaneou s pen injector active Not Available Not Available Not Available Vitals Date Recorded Body height Body mass index (BMI) Body weight Body temperature Heart rate Respiratory rate Oxygen saturation Oxygen saturation in Arterial blood by Pulse oximetry Systolic blood pressure Diastolic blood pressure Provider Name and Address Organization Details Last Updated DateTime 3 170.18 cm 27.8 kg/m2 95881.3 g 98.6 [degF] 75 /min 16 /min 97 % 97 % 142 mm[Hg] 88 mm[Hg] Sandhya Lim RN [place] - [facility] [address] 10:27:48 Date Recorded Body mass index (BMI) Body height Oxygen saturation Oxygen saturation in Arterial blood by Pulse oximetry Heart rate Body temperature Body weight Systolic blood pressure Diastolic blood pressure Provider Name and Address Organization Details Last Updated DateTime 2 35.6 kg/m2 170.18 cm 96 % 96 % 87 /min 98.1 [degF] 046418. 47 g 132 mm[Hg] 82 mm[Hg] Not Available [facility] 3 18:32:09 Date Recorded Body mass index (BMI) Body height Oxygen saturation Oxygen saturation in Arterial blood by Pulse oximetry Heart rate Body temperature Body weight Systolic blood pressure Diastolic blood pressure Provider Name and Address Organization Details Last Updated DateTime 2 32.9 kg/m2 170.18 cm 98 % 98 % 78 /min 98.5 [degF] 85373.4 g 130 mm[Hg] 88 mm[Hg] Not Available [facility] 3 18:32:09 Date Recorded Body mass index (BMI) Body weight Provider Name and Address Organization Details Last Updated DateTime 04/22/2023 27.9 kg/m2 94279.79 g Sandhya Meraz NP [address], [address], [place] [employer] [facility] [address] 04/22/2023 16:35:49 Date Recorded Body height Body temperature Heart rate Respiratory rate Oxygen saturation Oxygen saturation in Arterial blood by Pulse oximetry Systolic blood pressure Diastolic blood pressure Provider Name and Address Organization Details Last Updated DateTime 3 170.18 cm 97.4 [degF] 83 /min 16 /min 98 % 98 % 122 mm[Hg] 90 mm[Hg] Sandhya Lim RN [place] [employer] [facility] [address] 16:25:02 Social History Question Answer Notes LastModified by Organizat ion Details LastModified Time Tobacco Smoking Status Never Smoker Not Available [facility] 07/02/2022 18:31:59 Do You Have An Advance Directive? No [id number] Information not available 07/02/2022 Is Blood Transfusion Acceptable In An Emergency? Yes Information not available 08/19/2022 What Is Your Level Of Caffeine Consumption? Occasional [id number] Information not available 07/02/2022 What Is Your Code Status? Full Code Information not available 08/19/2022 In The 14 Days Before Symptom Onset, Have You Had Close Contact With A Laboratory-confir med COVID-19 While That Case Was Ill? No [id number].[id number] Information not available 07/02/2022 In The 14 Days Before Symptom Onset, Have You Had Close Contact With A Person Who Is Under Investigation For COVID-19 While That Person Was Ill? No [id number].[id number] Information not available 07/02/2022 What Type Of Diet Are You Following? REGULAR MIGRATION.58780 02283 Information not available 07/02/2022 What Is The Highest Grade Or Level Of School You Have Completed Or The Highest Degree You Have Received? [id number] MIGRATION.[id number] [id number] Information not available 07/02/2022 Have There Been Any Changes To Your Family Or Social Situation? No Information no t available 04/22/2023 Are There Any Guns Present In Your Home? No MIGRATION.[id number] Information not available 07/02/2022 Do You Use Insect Repellent Routinely? Yes [id number].51693 11212 Information not available 07/02/2022 Where Do You Live? [place]House MIGRATION.[id number] 13457 Information not available 07/02/2022 Do You Have A Medical Power Of Seafood Service Team Member? No MIGRATION.66717 24035 Information not available 07/02/2022 How Many Children Do You Have? 0 Information not available 08/19/2022 Do You Have Any Pets? Yes [id number].72934 00450 Information not available 07/02/2022 What Is Your Relationship Status? Information not available 04/22/2023 Do You Use Your Seat Belt Or Car Seat Routinely? Yes MIGRATION.22963 [id number] Information not available 07/02/2022 Do You Have Smoke And Carbon Monoxide Detectors In Your Home? Yes MIGRATION.53784 04754 Information not available 07/02/2022 Are There Any Smokers In Your House? No Information not available 08/19/2022 Do You Participate In Social Media? Yes MIGRATION.10781 [id number] Information not available 07/02/2022 Do You Use Sunscreen Routinely? Yes MIGRATION.47150 17406 Information not available 07/02/2022 Have You Recently Traveled Abroad? No MIGRATION.21402 74640 Information not available 07/02/2022 Are You Currently In School? No MIGRATION.53254 05901 Information not available 07/02/2022 Sex: Female Functional Status Question Answer Note LastModified by Organizat ion Details LastModified Time Do you use any illicit or recreational drugs? No [id number] Information not available 07/02/2022 What is your level of alcohol consumption? None MIGRATION.[id number] 026 Information not available 07/02/2022 What is your occupation? [employer] MIGRATION.[id number] 026 Information not available 07/02/2022 What is your exercise level? None Information not available 08/19/2022 Mental Status Question Answer Note LastModified by Organizat ion Details LastModified Time Do you feel stressed (tense, restless, nervous, or anxious, or unable to sleep at night)? [id number] Information not available 07/02/2022 Family History Relationship Description Onset Age of this Age Resolved Age Notes LastModified by Organization Details LastModified Time Maternal Grandmother Malignant tumor of pancreas 80 [id number] Not available 07/02/2022 18:32:03 Maternal Grandmother Cerebrovascu lar accident 60 [id number].113 [id number] Not available 07/02/2022 18:32:03 Maternal Grandmother Congestive heart failure 60-70' s [id number] [id number] Not available 07/02/2022 18:32:03 Maternal Grandfather Malignant tumor of colon MIGRATION.345 [id number] Not available 07/02/2022 18:32:03 Maternal Uncle Malignant neoplasm of bone 60 MIGRATION.685 [id number] Not available 07/02/2022 18:32:03 Medical History Condition Response HYPERTHYROIDISM Y CANCER: SPECIFY Y DEPRESSION (INCLUDING POST ) Y HYPERTENSION Y Do you have Advance directive? N Gynecological History Statement/Question Response Abnormal Pap Y Flow Moderate Date of LMP 04/12/2023 Dislike of Light during Menstrual Headac he N Do your menstrual headaches get severe N Date of Last Pap 05/06/2022 Duration of Flow (days) 3 Most Recent Mammogram Current Control Method BCPs Age at Menarche 12 Date of Last Colonoscopy Frequency of Cycle (Q days) 28 Most Recent Bone Density Do you get headaches during your period N Menses Monthly Y Date of Last Pap Smear Obstetrics History GPAL:G 1 P 0 0 0 0 Immunizations Vaccine Type Date Status Note Provider Nam e and Address Organization Details Recorded Time Influenza, split virus, quadrivalent, PF 02/08/2019 completed Not Available [facility] 18:33:27 Past Encounters Encounter ID Performer Location Encounter Start Date Encounter Closed Date Diagnosis/Indication Diagnosis SNOMED-CT Code Diagnosis ICD10 Code Diagnosis Note [id number] Paco Vega MD [address] [address] 08/29/2021 00:00:00 08/29/2021 10:54:52 [id number] Paco Vega MD [address] [address] 03/19/2022 00:00:00 03/19/2022 11:49:37 [id number] Sandhya Meraz NP [address] [address] 08/19/2022 09:57:58 08/19/2022 11:27:17 Hyperlipidemia 31312840 E78.5 Low fat diet. Losing weight. Vitamin B deficiency 479 37939 E53.9 B12 otc daily. Hypothyroidism 45885277 E03.9 Levothyrox ine 75 mcg po daily.labs ordered 08/19/22 Vitamin D deficiency 347 84488 E55.9 Vit d po daily otc. 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 Anemia 696822405 D64.9 labs ordered. Break-thro ugh bleeding 96740794 N92.1 check thyroid first. [id number] Sandhya Meraz NP [address] [address] 04/22/2023 16:16:16 04/22/2023 17:17:40 Hypercholesterolemia 55341938 E78.5 Low fat diet. Overweight 095244306 E66 .3 BMI 27 and 2 comorbidit ies thyroid and lipid.Pt ok to use script savings card. Was on mounjaro 10 mg dose. Hypothyroidism 75238507 E03.9 Levothyrox ine 75 mcg po daily.labs ordered 08/19/22 Adult heal th examination 900874562 Z00.00 Encouraged well balanced meals, active lifestyle, and routine vision and dental appts. Anemia screening 3151313 07 Z13.0 Diabetes m ellitus screening 455897634 Z13.1 Anxiety 03508911 F41.9 Lexapro 5 mg. Health Concerns Section Related Observation LastModified by Organization Detai ls LastModified Time None Recorded Concern Status LastModified by Organization Details LastModified Time None Recorded Advance Directives Directive N: Payers Insurance Date Sequence Insurance Name Policy Number Policy Fairchild Covered Member ID Fairchild Member ID Guarantor Name 04/29/2023 1 [facility] - PREFERREDONE (PPO) [id number] Laureen Laguna [id number] Laureen Laguna Notes Date Note Type Note Provider Name and Address Organization Details Recorded Time 08/19/2022 text/html Here for check u p. Due for labs. Has been on mounjaro and paying kirk. Lost 50 lbs. Feeling well. For the past 6 days has been having breakthough bleeding. Sandhya Meraz NP [address] [facility], [place] [address], [place], [address], [employer] 08/19/2022 11:21:53 04/22/2023 text/html Here for wellnes s visit. Feeling good Sandhya Meraz NP [address], [place], [address], [employer] 04/22/2023 17:16:02 OBGyn Episode No OBEpisode recorded.
--- OUTSIDE RECORDS SUMMARY | 2024-11-01 13:42 | XMS_ITS | Referral Summary ---
Author Organization [facility] Address [address] [place] [address] Care Team Providers Care National Accounts Sales Name Role Phone Breanne Dai MD Unavailable [phone] Deisy Zabala MD Primary Care Provider [phone] Allergies No known active allergies Medications valACYclovir (VALTREX) 1 gram tabletIndications :Chronic Suppression Take 1 tablet (1,000 mg total) by mouth daily. 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 90 tablet 9 Active levonorgestrel-et [...] Obesity due to excess calories 12/01/2016 12/08/2016 Social History Tobacco Use Types Packs/Day Years Used Date Smoking Tobacco: Never Smokeless Tobacco: Never Tobacco Cessation:Counseling Given: Yes Alcohol Use Standard Drinks/Week Comments No 0 (1 standard drink = 0.6 oz pur e alcohol) Comments No Sex and Gender Information Value Date Recorded Sex Assigned at Not on file Legal Sex Female 7:10 PM DIRECTOR WOMEN Gender Identity Not on file Sexual Orientation Not on file 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 Not on file Not on dixie e Last Filed Vital Signs Vital Sign Reading Time Taken Comments Blood Pressure 110/78 01/24/2019 8:36 AM CDT Pulse 90 12/08/2016 8:38 AM CDT Temperature - - Respiratory Rate 16 12/08/2016 8:38 AM CDT Oxygen Saturation 98% 05/26/2016 2:05 PM DIRECTOR WOMEN Inhaled Oxygen Concentration - - Weight 97.1 kg (214 lb) 01/24/2019 8:36 AM CDT Height 170.2 cm (5' 7) 06/13/2024 1:56 PM DIRECTOR WOMEN Body Mass Index 34.54 01/24/2019 8:36 AM CDT Plan of Treatment Not on file Procedures Procedure Name Priority Date/Time Associated Diagnosis Comments SCREENING MAMMOGRAM BILATERAL W JOEL Schedule Routine, Read Routine (OP Routine) 06/13/2024 2:06 PM DIRECTOR WOMEN Screening mammogram, encounter for SERUM HEPATITIS C AB Routine 08/12/2013 10:54 AM CDT from Last 3 Months or Most Recently Relevant to Health Maintenance Results * Screening Mammogram Bilateral W Joel (06/13/2024 2:06 PM DIRECTOR WOMEN) Anatomical Region Laterality Modality Breast Bilateral Mammography 06/13/2024 2:07 PM DIRECTOR WOMEN Impressions 06/13/2024 2:07 PM DIRECTOR WOMEN There is no mammographic evidence of malignancy. A 1 year screening mammogram is recommended. BI-RADS: 1 - Negative. The patient has been or will be contacted. The patient will be entered into a reminder system with a target due date of 1 year for her next mammogram. Electronically signed by: Shahab Deluna M.D. Narrative 06/13/2024 2:07 PM DIRECTOR WOMEN EXAMINATION: SCREENING MAMMOGRAM BILATERAL W JOEL ORDERING [...] HISTORICAL RESULTS - 08/12/2013 3:40 PM CDT #[id number] [facility] DOA, Varicella IgG, Obstetric Panel, and CF Breanne Dai MD LAB BLOOD ORDERABLE S Final Result HISTORICAL RESULTS from Last 3 Months or Most Recently Relevant to Health Maintenance Insurance [facility] Care Teams National Accounts Sales Relationship Specialty Start Date End Date Deisy Zabala MD [address] [place] [address] PCP - General 08/25/17 Breanne Dai MD [address] [place] [address] Obstetrics and Gynecology 11/28/16
[2024-11-01 13:49] VITALS: BP 149/88; PULSE 79; RESP 18; TEMP 37.1; O2SAT 100
--- NOTE | 2024-11-01 15:04 | ED.GENADULT ---
HPI - General Adult General Chief complaint: Skin/Abscess/Foreign Body Stated complaint: Insect Bite/Right Arm Source: patient Mode of arrival: ambulatory Limitations: no limitations History of Present Illness HPI narrative: Patient presents for evaluation of 2 insect bites to the right upper arm. She noticed them late last week. She applied Prid and swelling improved but she noted some underlying induration. She still has some overlying scabs. She has a burning sensation that she states is ?deeper than the skin?. No fever, chills, nausea, vomiting, purulence. She is not diabetic. She contacted her primary care provider and had an appointment scheduled for today however it was canceled last minute. She is concerned about infection with the upcoming holiday . Related Data Allergies Allergy/AdvReac Type Severity Reaction Status Date / Time No Known Allergies Allergy Verified 11/01/24 13:50 Review of Systems Review of Systems: CONSTITUTIONAL: Denies fever, chills, or sweats. EYES: Denies visual changes, redness, or discharge. ENT: Denies rhinorrhea, congestion, sore throat, or otalgia. CARDIOVASCULAR: Denies chest pain, palpitations, or edema. RESPIRATORY: Denies cough or dyspnea. GASTROINTESTINAL: Denies abdominal pain, nausea, vomiting, or diarrhea. GENITOURINARY: Denies dysuria or hematuria. SKIN: Reports 2 insect bites to the right upper arm with associated itching. MUSCULOSKELETAL: Reports pain in right upper arm. Denies back pain and joint pain NEUROLOGIC: Denies headache, numbness, dizziness, or weakness. PSYCHIATRIC: Denies anxiety or depression. [facility] Past Medical History Medical History Anxiety Hypothyroidism Surgical History Surgical History No history of previous surgery Family History Family History Mother Depression Grandparent Hypertension Cerebrovascular accident Malignant neoplasm of prostate Family history of dementia Family history of congestive heart failure Family history of malignant neoplasm Father Family history unknown Social History Social History Smoking status: Never smoker Second hand tobacco smoke exposure: Yes Alcohol intake: never Substance use: never Do You Feel Safe in your Home?: Yes Lack of Transportation: No Lack of Food: Never True Current Housing: I Have Housing Concerned About Future Housing: No Difficulty Paying Gas/Electric Bills: No Difficulty Paying for Meds: No Currently Unemployed: No Education: Don't Know Difficulty w/ Childcare or Family Care: No Living arrangements: alone Additional living arrangements comments: Occupation/Education: occupation 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 HEAD: Normocephalic, atraumatic. EYES: PERRLA and EOMI. ENT: Nares clear, no rhinorrhea or epistaxis. Mucous membranes moist. Oropharynx without tonsillar hypertrophy exudate or other lesions. Bilateral TMs pearly ureña nonbulging NECK: Supple. No adenopathy or masses. No carotid bruits or JVD CHEST: Clear to auscultation. No respiratory distress. No wheezes rales or rhonchi HEART: Regular rate and rhythm. No murmur heard. Normal peripheral pulses. ABDOMEN: Soft, nontender, nondistended, normal active bowel sounds. EXTREMITIES: Normal range of motion. No edema. SKIN: There are 2 areas of excoriation to the right upper arm that are both approximately 7 mm in size with overlying dried serosanguineous drainage. There is very trace surrounding erythema. NEURO: No focal deficits. Alert and oriented x3. PSYCH: Normal mood and affect. Course Course Emergency Course: This is a 39-year-old female who presented for evaluation of 2 insect bites. I believe these to be sufficiently treated with Benadryl and mupirocin. She is concerned about potential for infection with upcoming holiday. We agreed to send her with prescriptions for Medrol Dosepak and doxycycline, that she can fill if she has worsening symptoms. Otherwise she can follow-up with her primary care provider. For significantly worsening symptoms she should go to the emergency department. Patient in agreement with plan of care. Level of Care: Express Care Visit Vital Signs Vital signs: Vital Signs Temperature 37.1 C 11/01/24 13:49 Pulse Rate 79 11/01/24 13:49 Respiratory Rate 18 11/01/24 13:49 Blood Pressure 149/88 H 11/01/24 13:49 Pulse Oximetry 100 11/01/24 13:49 Oxygen Delivery Room Air 11/01/24 13:49 Temperature 37.1 C 11/01/24 13:49 Pulse Rate 79 11/01/24 13:49 Respiratory Rate 18 11/01/24 13:49 Blood Pressure 149/88 H 11/01/24 13:49 Pulse Oximetry 100 11/01/24 13:49 Oxygen Delivery Room Air 11/01/24 13:49 Medical Decision Making Vital Signs Vital Signs: Vital Signs Temperature 37.1 C 11/01/24 13:49 Pulse Rate 79 11/01/24 13:49 Respiratory Rate 18 11/01/24 13:49 Blood Pressure 149/88 H 11/01/24 13:49 Pulse Oximetry 100 11/01/24 13:49 Oxygen Delivery Room Air 11/01/24 13:49 Temperature 37.1 C 11/01/24 13:49 Pulse Rate 79 11/01/24 13:49 Respiratory Rate 18 11/01/24 13:49 Blood Pressure 149/88 H 11/01/24 13:49 Pulse Oximetry 100 11/01/24 13:49 Oxygen Delivery Room Air 11/01/24 13:49 Discharge Plan Discharge Clinical Impression: Insect bite Patient Disposition: Home Condition: Stable Instructions: Antibiotic Form, Insect Bite or Sting (ED) Patient Language: Estonian Prescriptions: New mupirocin [Centany] 2 % ointment 1 applic topical BID Qty: 15 0RF doxycycline hyclate 100 mg capsule 100 mg PO BID 10 Days Qty: 20 0RF Rx Instructions: please only start if symptoms worsening methylprednisolone [Medrol (Jeronimo)] 4 mg tablets,dose pack See Rx Instructions .ROUTE .COMPLEX Qty: 21 0RF Rx Instructions: for 6 days please only take if symptoms worsen No Action escitalopram oxalate [Lexapro] 5 mg tablet 5 mg PO DAILY Qty: 90 3RF Zepbound 10 mg/0.5 mL pen injector 10 mg subcut WEEKLY Qty: 6 0RF levothyroxine 75 mcg tablet 75 mcg PO DAILY Qty: 90 1RF Follow-up/Referrals: Sandhya Meraz APRN [Primary Care Provider] - Time of Disposition: 14:12
== END 2024-11-01 14:23 | disposition home or self-care (01) ==
PROVIDERS: Emergency Provider Nurse Practitioner; PCP Nurse Practitioner Family
DX: S40.861A Insect bite (nonvenomous) of right upper arm, initial encounter (principal); W57.XXXA Bitten or stung by nonvenomous insect and other nonvenomous arthropods, initial encounter; E03.9 Hypothyroidism, unspecified; F41.9 Anxiety disorder, unspecified
CPT/HCPCS: 99213; G0463